=== PATIENT | male | born 1940 | race Caucasian/White ===

== ENCOUNTER 2016-04-02 08:07 | Outpatient (CLI) | payer MEDICARE, OTHER | END 2016-04-02 08:08 | disposition home or self-care (01) | DX: C24.1 Malignant neoplasm of ampulla of Vater (principal) ==

== ENCOUNTER 2016-04-13 16:05 | Emergency (ER) | payer MEDICARE, OTHER | END 2016-04-13 18:15 | disposition home or self-care (01) | DX: J18.9 Pneumonia, unspecified organism (principal); C25.9 Malignant neoplasm of pancreas, unspecified; Z92.21 Personal history of antineoplastic chemotherapy ==

== ENCOUNTER 2016-04-30 08:00 | Outpatient (CLI) | payer MEDICARE, OTHER | END 2016-04-30 08:01 | disposition home or self-care (01) | DX: C24.1 Malignant neoplasm of ampulla of Vater (principal) ==

== ENCOUNTER 2016-05-14 09:45 | Outpatient (CLI) | payer MEDICARE, OTHER | END 2016-05-14 09:46 | disposition home or self-care (01) | DX: Z09 Encounter for follow-up examination after completed treatment for conditions other than malignant neoplasm (principal); Z87.01 Personal history of pneumonia (recurrent) ==

== ENCOUNTER 2016-07-10 08:00 | Outpatient (CLI) | payer MEDICARE, OTHER | END 2016-07-10 08:01 | disposition home or self-care (01) | DX: R35.0 Frequency of micturition (principal) ==

== ENCOUNTER 2016-12-26 07:58 | Outpatient (CLI) | payer MEDICARE, OTHER ==
[2016-12-26 18:06] LABS: ALBUMIN/GLOBULIN RATIO 1.4 (1.0-2.2); BILIRUBIN,TOTAL 0.8 mg/dL (0.2-1.0); BUN - BLOOD UREA NITROGEN 15 mg/dL (6-20); CALCIUM 9.1 mg/dL (8.5-10.3); CARBON DIOXIDE - CO2 26 mmol/L (21-32); CHLORIDE 102 mmol/L (101-111); CHOL/HDL RATIO 2.5 (<5.0); CHOLESTEROL 187 mg/dL; CREATININE 0.9 mg/dL (0.6-1.2); GFR - MDRD 82 (>89); GLUCOSE 94 mg/dL (70-100); HDL CHOLESTEROL 74 mg/dL; SODIUM 137 mmol/L (135-145); TOTAL PROTEIN 6.6 g/dL (6.7-8.2); TRIGLYCERIDES 37 mg/dL
[2016-12-26 18:26] LABS: LDL CHOLESTEROL,DIRECT 91 mg/dL
== END 2016-12-26 07:59 | disposition home or self-care (01) ==
LOC: LAB.F 07:58
PROVIDERS: ATTEND Naturopath
DX: M25.50 Pain in unspecified joint (principal); E78.5 Hyperlipidemia, unspecified; Z79.899 Other long term (current) drug therapy; K58.9 Irritable bowel syndrome, unspecified
CPT/HCPCS: 36415; 80053; 80061; 82306; 84403

== ENCOUNTER 2017-04-05 09:55 | Emergency (ER) | payer MEDICARE, OTHER ==
--- NOTE | 2017-04-05 10:21 | ED Physician Documentation ---
PD HPI Fall - Stated complaint Stated Complaint: GLF/R SHOULDER INJ - Chief complaint Chief Complaint: General - History obtained from History obtained from: Patient - History of Present Illness Mechanism of injury: Tripped Fall distance: Standing position Where injury occurred: Other (he was exercising at the gym and stepped from one treadmill exercise machine to next one and lost balance, falling to right side.) Timing - onset: Today Injury(ies) location: No: Head, Neck, Chest, Abdomen Associated symptoms: No: LOC, AMS, Neck pain, Weakness, Paresthesias Worsens with: Movement, Palpation Similar symptoms before: Has not had sx before Recently seen: Not recently seen Review of Systems Constitutional: denies: Fever, Chills Eyes: denies: Decreased vision, Photophobia Ears: denies: Loss of hearing, Ear pain, Drainage/discharge Nose: denies: Rhinorrhea / runny nose, Congestion Throat: denies: Dental pain / toothache, Sore throat Cardiac: denies: Chest pain / pressure, Palpitations Respiratory: denies: Dyspnea, Cough Neurologic: denies: Headache, Head injury PD PAST MEDICAL HISTORY - Past Medical History Cardiovascular: None Respiratory: Pneumonia Endocrine/Autoimmune: None GI: Other : Frequency, Other HEENT: None Psych: None Musculoskeletal: Gout Derm: None - Past Surgical History Past Surgical History: Yes Ortho: Other HEENT: Tonsil/Adenoidectomy - Present Medications Home Medications: Ambulatory Orders Medication Instructions Recorded Confirmed Lipase/Protease/Amylase [Creon Dr 3 tab PO AC 06/08/16 04/05/17 12,000 Units Capsule] Magnesium Oxide [Magnesium] 500 mg PO DAILY 02/22/17 04/05/17 Multivitamin [Multiple Vitamins] 1 tab PO DAILY 02/22/17 04/05/17 Omega3/Dha/Epa/Fish Oil/Vit D3 1,500 units PO DAILY 02/22/17 04/05/17 [Fish Oil-Vit D3 Softgel] Pyridoxine HCl [Vitamin B-6] 100 mg PO DAILY 02/22/17 04/05/17 Vitamin D3/Vitamin K2 (Mk4) [K2 1 tab PO DAILY 02/22/17 04/05/17 Plus D3 Tablet] Zinc Amino Acid Chelate [Zinc 1 tab PO DAILY 02/22/17 04/05/17 Chelated] - Allergies Allergies/Adverse Reactions: Allergies Allergy/AdvReac Type Severity Reaction Status Date / Time No Known Drug Allergies Allergy Verified 04/05/17 10:33 - Living Situation Living Situation: reports: With spouse/s.o. - Social History Does the pt smoke?: No Smoking Status: Former smoker Does the pt drink ETOH?: No Does the pt have substance abuse?: No - Family History Family history: denies: CAD, Sudden , CVA - Immunizations Immunizations are current?: Yes PD ED PE NORMAL - Vitals Vital signs reviewed: Yes - General General: Alert and oriented X 3, Well developed/nourished, Other (seems in pain with any right shoulder movement. Tender at mid to distal clavicle area. Shoulder itself had normal location and no tenderness of proximal humerus. ) - HEENT HEENT: Atraumatic - Neck Neck: Supple, no meningeal sign, No adenopathy - Cardiac Cardiac: RRR, No murmur - Respiratory Respiratory: Clear bilaterally - Abdomen Abdomen: Soft, Non tender - Male Male : Deferred - Rectal Rectal: Deferred - Back Back: No CVA TTP, No spinal TTP - Derm Derm: Normal color, Warm and dry - Extremities Extremities: Other (right shoulder tender with guarded ROM. Left proximal ulnar side forearm with very thin peel of skin about 2x1 cm, still skin layers intact under it. Left knee with thin abrasion. No joint effusion. ) - Neuro Neuro: Alert and oriented X 3, No motor deficit, Normal speech Results - Vitals Vitals: Vital Signs - 24 hr 04/05/17 04/05/17 10:15 12:20 Temperature 36.4 C L 36.3 C L Heart Rate 47 L 48 L Respiratory 20 18 Rate Blood Pressure 180/92 H 166/92 H O2 Saturation 100 100 Oxygen O2 Source Room air PD MEDICAL DECISION MAKING - ED course Complexity details: reviewed results, considered differential (interestingly no fractures in shoulder (clinicallly would have guessed clavicle fracture).), d/w patient Departure - Departure Disposition: 01 Home, Self Care Clinical Impression: Abrasion, left knee, initial encounter Accidental fall Qualifiers: Encounter type: initial encounter Qualified Code(s): W19.XXXA - Unspecified fall, initial encounter Right shoulder strain Qualifiers: Encounter type: initial encounter Qualified Code(s): S46.911A - Strain of unspecified muscle, fascia and tendon at shoulder and upper arm level, right arm , initial encounter Abrasion of left forearm Qualifiers: Encounter type: initial encounter Qualified Code(s): S50.812A - Abrasion of left forearm, initial encounter Condition: Stable Record reviewed to determine appropriate education?: Yes Instructions: ED Sprain Shoulder Follow-Up: Devi Tracy PA [Primary Care Provider] - Comments: No fractures on x-ray. Use a sling as needed for comfort. Presumably it is muscle and tendon type injury. Tylenol or ibuprofen if needed for pains. Clean the wounds daily or twice daily and apply antibiotic ointment. Recheck if signs of infection. The wounds should heal slowly over a week or 2. Discharge Date/Time: 04/05/17 12:29
--- NOTE | 2017-04-05 11:40 | XRAY Report ---
EXAM: RIGHT SHOULDER RADIOGRAPHY EXAM DATE: 04/05/2017 11:24 AM. CLINICAL HISTORY: Fall to right shoulder. Right shoulder pain after a fall this morning. COMPARISON: No x-ray comparison.. TECHNIQUE: 3 views. FINDINGS: Bones: Evidence of diffuse osteopenia.. No fracture or bone lesion. Joints: The glenohumeral and acromioclavicular joints are normally aligned. Mild acromioclavicular cl avicular joint degenerative disease.. Soft tissues: Surgical clips project over the superior lateral margin of the right hemithorax. The vi sualized hemithorax is unremarkable. No soft tissue swelling. IMPRESSION: 1. No acute abnormality of the right shoulder. 2. Osteopenia. 3. Mild AC joint degenerative disease. [facility] Referring Provider Line: [phone] SITE ID: [id number]
--- NOTE | 2017-04-05 11:40 | XRAY Preliminary Report ---
Exam: XR SHOULDER 3 VIEW RT IMPRESSION: 1. No acute abnormality of the right shoulder. 2. Osteopenia. 3. Mild AC joint degenerative disease. [facility] SITE ID: [id number]
[2017-04-05 12:22] VITALS: BP 166/92
== END 2017-04-05 12:29 | disposition home or self-care (01) ==
LOC: ED 09:55
DX: S46.911A Strain of unspecified muscle, fascia and tendon at shoulder and upper arm level, right arm, initial encounter (principal); S80.212A Abrasion, left knee, initial encounter; S50.812A Abrasion of left forearm, initial encounter; W01.0XXA Fall on same level from slipping, tripping and stumbling without subsequent striking against object, initial encounter; Y93.A1 Activity, exercise machines primarily for cardiorespiratory conditioning; Y92.39 Other specified sports and athletic area as the place of occurrence of the external cause; Z87.891 Personal history of nicotine dependence
CPT/HCPCS: 99283

== ENCOUNTER 2017-05-03 11:36 | Outpatient (CLI) | payer MEDICARE, OTHER ==
--- NOTE | 2017-05-03 14:22 | XRAY Report ---
THREE VIEW RIGHT SHOULDER: 05/03/2017 CLINICAL INDICATION: Trauma, palpable abnormality. COMPARISON: 04/05/2017. FINDINGS: Internal and external rotational views and a scapular Y view of the right shoulder demonstrate no evidence of interval fracture. Degenerative changes are stable. Postoperative changes in the right axilla are stable. IMPRESSION: STABLE DEGENERATIVE CHANGES. NO EVIDENCE OF FRACTURE. TD: 05/03/2017 14:19
== END 2017-05-03 11:37 | disposition home or self-care (01) ==
LOC: DI.S 11:36
PROVIDERS: ATTEND Physician Assistant
DX: M19.011 Primary osteoarthritis, right shoulder (principal)

== ENCOUNTER 2017-05-04 08:29 | Outpatient (CLI) | payer MEDICARE, OTHER ==
--- NOTE | 2017-05-04 21:14 | XRAY Report ---
EXAM: RIGHT CLAVICLE RADIOGRAPHY EXAM DATE: 05/04/2017 08:55 AM. CLINICAL HISTORY: RT CLAVICLE PAIN, BONY ABNORMALITY, TRAUMA. COMPARISON: 04/05/2017. TECHNIQUE: 2 views. FINDINGS: Bones: No fracture or bone lesion. Small osseous excrescences at the inferior margin of the distal cl avicle are likely from prior coracoclavicular joint injury. Joints: No dislocation. Mild acromioclavicular joint arthrosis. Soft Tissues: Left central catheter partially imaged. Right chest wall clips. IMPRESSION: No acute osseous abnormality. [facility] Referring Provider Line: [phone] SITE ID: [id number]
== END 2017-05-04 08:30 | disposition home or self-care (01) ==
LOC: DI 08:29
PROVIDERS: ATTEND Physician Assistant
DX: M25.511 Pain in right shoulder (principal); M89.9 Disorder of bone, unspecified

== ENCOUNTER 2017-05-15 06:29 | Outpatient (CLI) | payer MEDICARE, OTHER ==
[2017-05-15] MEDS ORDERED: IOPAMIDOL-300 100 ML VIAL ONE (06:48)
[2017-05-15 07:15] LABS: CREATININE 0.7 mg/dL (0.6-1.2)
--- NOTE | 2017-05-15 11:06 | CT Report ---
CT OF CHEST WITH CONTRAST: 05/15/2017 CLINICAL INDICATION: Palpable abnormality medial right clavicle, history of trauma. TECHNIQUE: Axial CT images of the chest were obtained with 80 mL Isovue 300 intravenously. COMPARISON: Previous chest CT 02/14/2015, clavicle x-ray 05/04/2017, shoulder x-ray 05/03/2017, shoulder x-ray 04/05/2017. FINDINGS: The heart and great vessels demonstrate mild atherosclerotic calcifications. There is a mildly displaced fracture of the medial right clavicle, extending to the sternoclavicular articular surface, correlating with the palpable abnormality. Postoperative changes are seen in the lateral right hemithorax, at the site of previous pleural lesion resection. The lungs are clear. No effusion or pneumothorax is present. Limited evaluation of the upper abdominal structures demonstrates normal adrenal glands. Pneumobilia is present. IMPRESSION: PALPABLE ABNORMALITY CORRELATES WITH A HEALING SUBACUTE PROXIMAL CLAVICULAR FRACTURE, NOT EVIDENT ON PREVIOUS PLAIN RADIOGRAPHS. POSTOPERATIVE CHANGES IN THE RIGHT LATERAL HEMITHORAX. In accordance with CT protocol optimization, one or more of the following dose reduction techniques were utilized for this exam: automated exposure control, adjustment of mA and/or KV based on patient size, or use of iterative reconstructive technique. TD: 05/15/2017 11:05
[2017-05-15] MEDS ORDERED: IOPAMIDOL-300 100 ML VIAL IVP ONE (16:51)
== END 2017-05-15 06:30 | disposition home or self-care (01) ==
LOC: LAB 06:29
PROVIDERS: ATTEND Physician Assistant
DX: C79.9 Secondary malignant neoplasm of unspecified site (principal); R93.7 Abnormal findings on diagnostic imaging of other parts of musculoskeletal system; Z98.890 Other specified postprocedural states
CPT/HCPCS: 36415; 71260; 82565; Q9967

== ENCOUNTER 2017-08-09 04:00 | Emergency (ER) | payer MEDICARE, OTHER ==
--- NOTE | 2017-08-09 04:12 | ED Physician Documentation ---
History of Present Illness - Stated complaint Stated Complaint: BLEEDING FROM IV LINE - Chief complaint Chief Complaint: General - History obtained from History obtained from: Patient - History of Present Illness Timing: Today - Additonal information Additional information: patient was receiving dose of chemotherapy at home via his power port when the connection became dislodged at the hub connector. there was some bleeding through the tubing from the proximal tubing (still connected to Power port), as well as leaking from the distal end of his chemotherapy (still connected to pump ; chemo is fluorouracil). He is chiefly concerned about the chemo agent being on his skin (abdominal wall); he recalls reading about precautions regarding skin exposure to this medication, but could not find this set of instruction at home. he denies any pain or irritation of the skin. he has no new symptoms today. PD PAST MEDICAL HISTORY - Past Medical History Cardiovascular: None Respiratory: Pneumonia Endocrine/Autoimmune: None GI: Other : Frequency, Other HEENT: None Psych: None Musculoskeletal: Gout Derm: None - Past Surgical History Past Surgical History: Yes Ortho: Other HEENT: Tonsil/Adenoidectomy - Present Medications Home Medications: Ambulatory Orders Medication Instructions Recorded Confirmed Lipase/Protease/Amylase [Creon Dr 3 tab PO AC 06/08/16 05/10/17 12,000 Units Capsule] Magnesium Oxide [Magnesium] 500 mg PO DAILY 02/22/17 05/10/17 Multivitamin [Multiple Vitamins] 1 tab PO DAILY 02/22/17 05/10/17 Omega3/Dha/Epa/Fish Oil/Vit D3 1,500 units PO DAILY 02/22/17 05/10/17 [Fish Oil-Vit D3 Softgel] Pyridoxine HCl [Vitamin B-6] 100 mg PO DAILY 02/22/17 05/10/17 Vitamin D3/Vitamin K2 (Mk4) [K2 1 tab PO DAILY 02/22/17 05/10/17 Plus D3 Tablet] Zinc Amino Acid Chelate [Zinc 1 tab PO DAILY 02/22/17 05/10/17 Chelated] - Allergies Allergies/Adverse Reactions: Allergies Allergy/AdvReac Type Severity Reaction Status Date / Time No Known Drug Allergies Allergy Verified 08/09/17 04:17 - Social History Does the pt smoke?: No Smoking Status: Former smoker Does the pt drink ETOH?: No Does the pt have substance abuse?: No - Immunizations Immunizations are current?: Yes - POLST Patient has POLST: No PD ED PE NORMAL - Vitals Vital signs reviewed: Yes - General General: Alert and oriented X 3, No acute distress, Well developed/nourished - Abdomen Abdomen: Soft, Non tender - Derm Derm: Normal color, Warm and dry, No rash, Other (normal appearance of abdominal wall) Results - Vitals Vitals: Oxygen O2 Source Room air PD MEDICAL DECISION MAKING - ED course Complexity details: considered differential, d/w patient ED course: RN replaced hub connector and patient then reconnected the tubing and restarted the chemo infusion which was observed to be flowing without difficulty. He is concerned with the amount of fluorouracil that was lost, but he has appointment [place] [facility] [place]; I advised him that he can inquire about whether the lost amount needs to be addressed at that appointment. There is no evidence of irritation of the skin nor c/o symptoms at the site of the chemo spill ( abdominal wall). Departure - Departure Disposition: 01 Home, Self Care Clinical Impression: Chemical exposure Condition: Good Comments: Your device is working at this time and the skin exposure you describe (to the medication) is not significant. Follow [place] [facility] [place] 11:30 this morning as scheduled. Discharge Date/Time: 08/09/17 05:17
[2017-08-09 04:17] VITALS: BP 136/89
== END 2017-08-09 05:17 | disposition home or self-care (01) ==
LOC: ED 04:00
DX: T82.534A Leakage of infusion catheter, initial encounter (principal); Z77.098 Contact with and (suspected) exposure to other hazardous, chiefly nonmedicinal, chemicals; Z87.891 Personal history of nicotine dependence
CPT/HCPCS: 99211; 99282

== ENCOUNTER 2017-12-21 01:26 | Emergency (ER) | payer MEDICARE, OTHER ==
--- NOTE | 2017-12-21 01:44 | ED Physician Documentation ---
History of Present Illness - Stated complaint Stated Complaint: LT SHOULDER,ARM PAIN - Chief complaint Chief Complaint: Ext Problem - History obtained from History obtained from: Patient, Family - History of Present Illness Timing: How many weeks ago (3) Pain level max: 8 Pain level now: 6 Improved by: nothing Worsened by: nothing - Additonal information Additional information: L shoulder and arm pain for 3 weeks. Has seen his PCP and states was diagnosed with a pinched nerve. Has also been seeing physical therapy without relief. 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 He states that the tumors were "very small" at the end of July. Has not had any imaging since that time. No fevers. Took his 's oxycodone without relief Review of Systems Ten Systems: 10 systems reviewed and negative Constitutional: denies: Fever, Chills Nose: denies: Rhinorrhea / runny nose, Congestion Throat: denies: Sore throat Cardiac: denies: Chest pain / pressure, Palpitations Respiratory: denies: Dyspnea, Cough, Wheezing GI: denies: Abdominal Pain, Vomiting, Diarrhea Skin: denies: Rash Musculoskeletal: denies: Neck pain, Back pain Neurologic: denies: Headache PD PAST MEDICAL HISTORY - Past Medical History Cardiovascular: None Respiratory: Pneumonia Endocrine/Autoimmune: None GI: Other : Frequency, Other HEENT: None Psych: None Musculoskeletal: Gout Derm: None - Past Surgical History Past Surgical History: Yes Ortho: Other HEENT: Tonsil/Adenoidectomy - Present Medications Home Medications: Ambulatory Orders Medication Instructions Recorded Confirmed Magnesium Oxide [Magnesium] 500 mg PO DAILY 02/22/17 12/20/17 Multivitamin [Multiple Vitamins] 1 tab PO DAILY 02/22/17 12/20/17 Omega3/Dha/Epa/Fish Oil/Vit D3 1,500 units PO DAILY 02/22/17 12/20/17 [Fish Oil-Vit D3 Softgel] Pyridoxine HCl [Vitamin B-6] 100 mg PO DAILY 02/22/17 12/20/17 Vitamin D3/Vitamin K2 (Mk4) [K2 1 tab PO DAILY 02/22/17 12/20/17 Plus D3 Tablet] Zinc Amino Acid Chelate [Zinc 1 tab PO DAILY 02/22/17 12/20/17 Chelated] Acetaminophen [Tylenol] 2 tab PO Q4HR PRN 12/20/17 12/20/17 Ibuprofen 3 tab PO Q4HR PRN 12/20/17 12/20/17 Lipase/Protease/Amylase [Rachellon Dr 1 tab PO AC 12/20/17 12/20/17 36,000 Units Capsule] Oxycodone HCl/Acetaminophen 1 - 2 each PO Q6H PRN #20 tablet 12/21/17 [Percocet 5-325 mg Tablet] - Allergies Allergies/Adverse Reactions: Allergies Allergy/AdvReac Type Severity Reaction Status Date / Time No Known Drug Allergies Allergy Verified 08/09/17 04:17 - Social History Does the pt smoke?: No Smoking Status: Never smoker Does the pt drink ETOH?: No Does the pt have substance abuse?: No - Immunizations Immunizations are current?: Yes - POLST Patient has POLST: No PD ED PE NORMAL - Vitals Vital signs reviewed: Yes - General General: Alert and oriented X 3, No acute distress - HEENT HEENT: Moist mucous membranes - Neck Neck: Supple, no meningeal sign - Cardiac Cardiac: RRR, Strong equal pulses - Respiratory Respiratory: No respiratory distress, Clear bilaterally - Abdomen Abdomen: Soft, Non tender, Non distended - Back Back: No spinal TTP - Derm Derm: Warm and dry - Extremities Extremities: No deformity, No tenderness to palpate, Normal ROM s pain, No edema - Neuro Neuro: Alert and oriented X 3 - Psych Psych: Normal mood, Normal affect - Free text exam Free text exam: 2 x 2 centimeter soft mobile mass to the left scapular region. No overlying skin changes Results - Vitals Vitals: Vital Signs - 24 hr 12/21/17 12/21/17 12/21/17 01:36 03:49 04:26 Temperature 36.2 C L Heart Rate 50 L 51 L Respiratory 18 17 16 Rate Blood Pressure 163/88 H 114/79 O2 Saturation 98 99 99 Oxygen O2 Source Room air - Rads (name of study) Left shoulder x-ray Radiology: Prelim report reviewed, EMP read contemporaneously, See rad report (Mild degenerative changes of the acromioclavicular joint. Abnormal left lung opacity, not present on CT of 05/15/2017. ) Chest x-ray Radiology: Prelim report reviewed, EMP read contemporaneously, See rad report (New nodular opacities bilaterally, suspicious for metastatic ) PD MEDICAL DECISION MAKING - ED course Complexity details: reviewed results, re-evaluated patient, considered differential, d/w patient, d/w family ED course: Patient is a 77-year-old male who presents to the emergency department left shoulder pain. This appears to be likely referred pain from his metastatic cancer that is now spread to his lungs. No bony tenderness on examination there is no acute bony findings on x-ray. Pain well controlled after a dose of [address] on oxycodone for home. He also appears to have a lipoma to his back, though recommend he follow-up with his doctor for further evaluation and potential biopsy. Patient was also given a sling that he can try to utilize for comfort, but patient and he were warned not to stay in the sling longer than a day at a time. Patient and family counseled regarding signs and symptoms for which I believe and urgent re-evaluation would be necessary. Patient with good understanding of and agreement to plan and is comfortable going home at this time This document was made in part using voice recognition software. While efforts are made to proofread this document, sound alike and grammatical errors may occur. - Sepsis Event Vital Signs: Vital Signs - 24 hr 12/21/17 12/21/17 12/21/17 01:36 03:49 04:26 Temperature 36.2 C L Heart Rate 50 L 51 L Respiratory 18 17 16 Rate Blood Pressure 163/88 H 114/79 O2 Saturation 98 99 99 Oxygen O2 Source Room air Departure - Departure Disposition: 01 Home, Self Care Clinical Impression: Metastatic cancer Shoulder pain Qualifiers: Chronicity: acute Laterality: left Qualified Code(s): M25.512 - Pain in left shoulder Condition: Good Instructions: ED Acute Pain [facility] Follow-Up: Devi Tracy PA [Provider Admit Priv/Credential] - Karina Jimenez MD [Primary Care Provider] - Within 1 week Prescriptions: Oxycodone HCl/Acetaminophen [Percocet 5-325 mg Tablet] 1 - 2 each PO Q6H PRN #20 tablet PRN Reason: pain Comments: The cause of your symptoms is unclear, but is likely related to the spread and growth of the metastatic tumors in both your lungs. You need to follow-up with your oncologist for further evaluation and care. Do not drink alcohol or drive while on narcotic pain medicine. Note that many narcotic pain relievers also contain tylenol/acetaminophen. Please ensure that your total dose of acetaminophen from all sources does not exceed 3 grams (3000mg) per day. You may constipated on this medication, take a stool softener such as "Colace" twice a day while you are on it. Also recommend a uyzg-ehg-geeihvo laxative such as senna or MiraLAX any day that you do not have a bowel movement. If you received narcotic pain medication in the emergency department, do not drive or operate machinery for the next 24 hours. Discharge Date/Time: 12/21/17 04:27
[2017-12-21] MEDS ORDERED: KETOROLAC 60 MG/2 ML VIAL IM STA (02:22)
[2017-12-21] MEDS ORDERED: MORPHINE 2 MG/ML CARPUJECT IM STA (03:18)
--- NOTE | 2017-12-21 03:34 | XRAY Report ---
Reason: L shoulder pain Procedure Date: 12/21/2017 Accession Number: [id number] / [id number] Procedure: XR - Shoulder 3 View LT CPT Code: FULL RESULT: EXAM: LEFT SHOULDER RADIOGRAPHY EXAM DATE: 12/21/2017 03:13 AM. CLINICAL HISTORY: L shoulder pain. COMPARISON: CT 05/15/2017. TECHNIQUE: 3 views. FINDINGS: Bones: Normal. No fracture or bone lesion. Joints: Mild degenerative changes of the acromioclavicular joint. Soft tissues: Left jugular Mediport. Bandlike opacity in the left midlung. IMPRESSION: Mild degenerative changes of the acromioclavicular joint. Abnormal left lung opacity, not present on CT of 05/15/2017. [facility]
[2017-12-21 03:50] VITALS: BP 114/79
--- NOTE | 2017-12-21 03:55 | XRAY Report ---
Reason: L shoulder pain, h/o CA with mets to lungs Procedure Date: 12/21/2017 Accession Number: [id number] / [id number] Procedure: XR - Chest 2 View X-Ray CPT Code: 95009 FULL RESULT: EXAM: CHEST RADIOGRAPHY EXAM DATE: 12/21/2017 03:41 AM. CLINICAL HISTORY: L shoulder pain, h/o CA with mets to lungs. COMPARISON: CHEST 2 VIEW PA/LAT 04/13/2016 4:32 PM CHEST W/ 05/15/2017 7:32 AM. TECHNIQUE: 2 views. FINDINGS: Lungs/Pleura: New nodular opacities in the left midlung, right lower lobe and right upper lobe. No effusion or pneumothorax. Mediastinum: Heart and mediastinal contours are unremarkable. Other: Left jugular port terminates in the superior vena cava. IMPRESSION: New nodular opacities bilaterally, suspicious for metastatic disease. [facility]
[2017-12-21] MEDS ORDERED: oxyCODONE 5 MG TABLET PO STA (04:15)
== END 2017-12-21 04:27 | disposition home or self-care (01) ==
LOC: ED 01:26
DX: M25.512 Pain in left shoulder (principal); C78.00 Secondary malignant neoplasm of unspecified lung; C20 Malignant neoplasm of rectum
CPT/HCPCS: 71046; 73030; 96372; 99283; A9270

== ENCOUNTER 2018-10-24 11:08 | Outpatient (CLI) | payer MEDICARE, OTHER | END 2018-10-24 11:09 | disposition EMS.NT | LOC: EMS 11:08 | PROVIDERS: ATTEND Surgery | DX: R29.810 Facial weakness (principal) ==

== ENCOUNTER 2018-11-05 04:16 | Outpatient (CLI) | payer MEDICARE, OTHER | END 2018-11-05 04:17 | disposition EMS.NT | LOC: EMS 04:16 | PROVIDERS: ATTEND Surgery | DX: R07.9 Chest pain, unspecified (principal) ==